=== PATIENT | male | born 1955 | race Caucasian/White ===

== ENCOUNTER 2022-08-02 14:51 | Emergency (ER) | payer OTHER ==
[2022-08-02 14:58] VITALS: BMI 27.3
[2022-08-02] MEDS ORDERED: DIPHTH,PERTUSS(ACELL),TET 0.5 ML DISP.SYRIN IM ONE ×2 (15:11→15:45)
[2022-08-02] MEDS ORDERED: CEFAZOLIN 1 GM in DEXTROSE 5%-WATER - 50 ML IVPB ONE (15:52)
[2022-08-02] MEDS ORDERED: LIDOCAINE HCL 2% (50ML VIAL) SQ ONE (16:00)
[2022-08-02] MEDS ORDERED: LIDOCAINE HCL 2% (20ML MULTI-DOSE VIAL) ONE (16:01)
[2022-08-02] MEDS ORDERED: ceFAZolin SODIUM 1 GM VIAL ONE (16:09)
[2022-08-02 18:50] VITALS: BP 145/93; PULSE 65; RESP 20; TEMP 97.8
== END 2022-08-02 18:51 | disposition short-term general hospital (02) ==
LOC: JERFT 14:51
PROC: 3E03329 Introduction of Other Anti-infective into Peripheral Vein, Percutaneous Approach (ICD-10-PCS; principal; 2022-08-02)
PROC: 3E0234Z Introduction of Serum, Toxoid and Vaccine into Muscle, Percutaneous Approach (ICD-10-PCS; 2022-08-02)
DX: S61.112A Laceration without foreign body of left thumb with damage to nail, initial encounter (principal); S62.522B Displaced fracture of distal phalanx of left thumb, initial encounter for open fracture; Y99.9 Unspecified external cause status
CPT/HCPCS: 0241U-QW; 73130-TC-LT-FY; 90715; 99285-25